=== PATIENT | female | born 1975 | race Caucasian/White ===

== ENCOUNTER 2018-01-19 20:32 | Emergency (ER) | payer MEDICAID ==
[2018-01-20 03:49] LABS: URINE BLOOD (Dip) POC Trace-lysed (NEGATIVE); URINE GLUCOSE (Dip) POC Negative (NEGATIVE); URINE KETONES (Dip) POC Trace (NEGATIVE); URINE LEUKOCYTE EST (Dip) POC 3+ (NEGATIVE); URINE NITRITE (Dip) POC Positive (NEGATIVE); URINE TOTAL PROTEIN POC Negative (NEGATIVE)
[2018-01-20 03:54] LABS: ADD MAN DIFF? NO
[2018-01-20 03:56] LABS: WHITE BLOOD COUNT 10.2 10^3/ul (4.8-10.8)
[2018-01-20 03:56] LABS: BASOPHIL # 0.1 10^3/ul (0.0-0.1); BASOPHILS % 0.5 % (0.0-2.0); EOSINOPHILS # 0.1 10^3/ul (0.0-0.5); HEMATOCRIT 32.6 % (37.0-47.0); HEMOGLOBIN 10.9 g/dl (12.0-16.0); LYMPHOCYTES # 2.5 10^3/ul (0.8-2.9); LYMPHOCYTES % 24.9 % (15.0-51.0); MEAN CORPUSCULAR HGB CONC 33.4 g/dl (32.0-37.0); MEAN CORPUSCULAR VOLUME 80.9 fl (82.0-101.0); MEAN PLATELET VOLUME 10.3 fl (7.4-10.4); MONOCYTE # 0.7 10^3/ul (0.3-0.9); MONOCYTES % 7.1 % (0.0-11.0); NEUTROPHIL # 6.7 10^3/ul (1.6-7.5); PLATELET COUNT 312 10^3/UL (140-415); RED BLOOD COUNT 4.03 10^6/ul (4.20-5.40); RED CELL DISTRIBUTION WIDTH 14.9 % (11.5-14.5)
[2018-01-20] MEDS: SOD CHLORIDE 0.9% 500 ML IV (03:58)
[2018-01-20 04:14] LABS: ALANINE AMINOTRANSFERASE 30 IU/L (13-69); ALBUMIN 3.7 g/dl (3.3-4.9); ALBUMIN/GLOBULIN RATIO 1.02; ALKALINE PHOSPHATASE 67 IU/L (42-121); ANION GAP 16 (8-16); ASPARTATE AMINO TRANSFERASE 21 IU/L (15-46); BILIRUBIN,INDIRECT 0.3 mg/dl (0-1.1); BILIRUBIN,TOTAL 0.3 mg/dl (0.2-1.3); BLOOD UREA NITROGEN 9 mg/dl (7-20); CALCIUM 8.6 mg/dl (8.4-10.2); CARBON DIOXIDE 25 mmol/L (21-31); CHLORIDE 105 mmol/L (97-110); CREATININE 0.61 mg/dl (0.44-1.00); GLUCOSE 88 mg/dl (70-220); POTASSIUM 3.5 mmol/L (3.5-5.1); SODIUM 142 mmol/L (135-144); TOTAL PROTEIN 7.3 g/dl (6.1-8.1)
[2018-01-20 04:26] LABS: B-TYPE NATRIURETIC PEPTIDE 38 PG/ML (0-125)
[2018-01-20 04:43] LABS: TROPONIN-I < 0.012 ng/ml (0.00-0.12)
== END 2018-01-20 05:54 | disposition home or self-care (01) ==
LOC: E/R 20:32
DX: O99.342 Other mental disorders complicating pregnancy, second trimester (principal); O23.42 Unspecified infection of urinary tract in pregnancy, second trimester; F41.9 Anxiety disorder, unspecified; R06.02 Shortness of breath; Z3A.17 17 weeks gestation of pregnancy
CPT/HCPCS: 36415; 80053; 81003; 83880; 84484; 85025; 93005; 99284-25

== ENCOUNTER 2018-05-27 05:46 | Inpatient (IN) | payer OTHER ==
[2018-05-27] MEDS: LACTATED RINGER'S 1,000 ML IV ×3 (06:05→07:45)
[2018-05-27 06:28] LABS: ADD MAN DIFF? NO
[2018-05-27 06:30] LABS: BASOPHILS % 0.4 % (0.0-2.0); EOSINOPHILS # 0.1 10^3/ul (0.0-0.5); EOSINOPHILS % 1.1 % (0.0-7.0); HEMATOCRIT 32.8 % (37.0-47.0); HEMOGLOBIN 10.8 g/dl (12.0-16.0); LYMPHOCYTES # 2.3 10^3/ul (0.8-2.9); LYMPHOCYTES % 23.3 % (15.0-51.0); MEAN CORPUSCULAR HGB CONC 32.9 g/dl (32.0-37.0); MEAN PLATELET VOLUME 11.3 fl (7.4-10.4); MONOCYTE # 0.7 10^3/ul (0.3-0.9); MONOCYTES % 7.6 % (0.0-11.0); NEUTROPHIL # 6.4 10^3/ul (1.6-7.5); NEUTROPHILS % 66.7 % (39.0-77.0); PLATELET COUNT 293 10^3/UL (140-415); RED CELL DISTRIBUTION WIDTH 15.8 % (11.5-14.5)
[2018-05-27 06:30] LABS: WHITE BLOOD COUNT 9.7 10^3/ul (4.8-10.8)
[2018-05-27] MEDS ORDERED: MISOPROSTOL 200 MCG TAB PR ×2 (06:30→15:30)
[2018-05-27] MEDS ORDERED: METHYLERGONOVINE 0.2 MG INJ IM ×2 (06:30→15:30)
[2018-05-27] MEDS ORDERED: OXYTOCIN 30 UNITS/LR 500 ML IV ×3 (06:30→15:30)
[2018-05-27] MEDS ORDERED: CARBOPROST 250 MCG INJ IM ×2 (06:30→15:30)
[2018-05-27 06:40] LABS: PROTIME 12.2 Sec (11.9-14.9)
[2018-05-27 06:41] LABS: PARTIAL THROMBOPLASTIN TIME 27.7 Sec (25.0-35.0)
[2018-05-27] MEDS ORDERED: OXYTOCIN 10 UNIT INJ ×2 (07:43→08:39)
[2018-05-27] MEDS ORDERED: morphine SULFATE/PF (10 MG/10 ML) INJ (07:43)
[2018-05-27] MEDS ORDERED: METOCLOPRAMIDE 10 MG INJ (07:43)
[2018-05-27] MEDS ORDERED: ONDANSETRON 4 MG INJ (07:43)
[2018-05-27] MEDS ORDERED: EPHEDrine SULFATE 50 MG/5 ML SYG (07:43)
[2018-05-27] MEDS ORDERED: BUPIVACAINE 0.75%/DEXT (SPINAL) 2 ML INJ (07:47)
[2018-05-27] MEDS ORDERED: ATROPINE 1 MG/10 ML SYRINGE (08:21)
[2018-05-27] MEDS: CEFAZOLIN 2 GM/50 ML (PMX) 50 ML IV (08:45)
[2018-05-27] MEDS ORDERED: KETOROLAC 30 MG INJ (09:48)
[2018-05-27] MEDS ORDERED: ONDANSETRON 4 MG INJ IV (10:00)
[2018-05-27] MEDS ORDERED: EPHEDrine SULFATE 50 MG/5 ML SYG IV (10:00)
[2018-05-27] MEDS ORDERED: NALOXONE (0.4 MG/ML) INJ IV (10:00)
[2018-05-27] MEDS: morphine SULFATE/PF (10 MG/10 ML) INJ SPINAL (10:03)
[2018-05-27] MEDS: KETOROLAC 30 MG INJ IV ×2 (10:05→17:56)
[2018-05-27] MEDS: OXYTOCIN 30 UNITS/LR 500 ML IV ×4 (10:27→23:14)
[2018-05-27] MEDS: morphine 2 MG INJ IV ×2 (10:29→19:04)
[2018-05-27] MEDS: DIPHENHYDRAMINE 50 MG INJ IV (12:03)
[2018-05-27 15:00] LABS: RAPID PLASMA REAGIN NONREACTIVE (NR)
[2018-05-27] MEDS ORDERED: HYDROCODONE/APAP (5/325) TAB PO (15:30)
[2018-05-27] MEDS: SENNA/DOCUSATE NA (8.6MG/50MG) TAB PO ×2 (15:43→21:54)
[2018-05-27] MEDS: CEFAZOLIN 1 GM/50 ML (PMX) 50 ML IVPB (15:43)
[2018-05-27] MEDS: LANOLIN 7 GM TUBE TOP (18:53)
[2018-05-28] MEDS: morphine 2 MG INJ IV ×3 (01:58→09:17)
[2018-05-28] MEDS: OXYTOCIN 30 UNITS/LR 500 ML IV ×2 (03:11→07:11)
[2018-05-28] MEDS: SENNA/DOCUSATE NA (8.6MG/50MG) TAB PO ×2 (09:00→21:00)
[2018-05-28] MEDS: OXYCODONE/ACETAMINOPHEN (5/325) TAB PO ×4 (10:19→21:38)
[2018-05-28 11:49] LABS: ADD MAN DIFF? NO
[2018-05-28 11:55] LABS: BASOPHILS % 0.2 % (0.0-2.0); EOSINOPHILS # 0.1 10^3/ul (0.0-0.5); EOSINOPHILS % 1.1 % (0.0-7.0); HEMATOCRIT 31.5 % (37.0-47.0); HEMOGLOBIN 10.2 g/dl (12.0-16.0); LYMPHOCYTES # 1.8 10^3/ul (0.8-2.9); LYMPHOCYTES % 14.5 % (15.0-51.0); MEAN CORPUSCULAR HEMOGLOBIN 26.9 pg (29.0-33.0); MEAN CORPUSCULAR HGB CONC 32.4 g/dl (32.0-37.0); MEAN CORPUSCULAR VOLUME 83.1 fl (82.0-101.0); MEAN PLATELET VOLUME 10.8 fl (7.4-10.4); MONOCYTE # 0.7 10^3/ul (0.3-0.9); MONOCYTES % 5.5 % (0.0-11.0); NEUTROPHIL # 9.6 10^3/ul (1.6-7.5); NEUTROPHILS % 78.1 % (39.0-77.0); PLATELET COUNT 298 10^3/UL (140-415); RED BLOOD COUNT 3.79 10^6/ul (4.20-5.40); RED CELL DISTRIBUTION WIDTH 15.9 % (11.5-14.5)
[2018-05-28 11:55] LABS: WHITE BLOOD COUNT 12.4 10^3/ul (4.8-10.8)
[2018-05-28] MEDS: IBUPROFEN 600 MG TAB PO (17:56)
[2018-05-29] MEDS: IBUPROFEN 600 MG TAB PO ×4 (00:37→18:37)
[2018-05-29] MEDS: OXYCODONE/ACETAMINOPHEN (5/325) TAB PO ×3 (03:32→13:49)
[2018-05-29] MEDS: LANOLIN 7 GM TUBE TOP (05:58)
[2018-05-29] MEDS: SENNA/DOCUSATE NA (8.6MG/50MG) TAB PO ×2 (08:26→21:27)
[2018-05-29] MEDS ORDERED: ACCU-CHEK XX (10:05)
[2018-05-29] MEDS: NA PHOSPHATE/BIPHOS 133 ML ENEMA PR (18:38)
[2018-05-30] MEDS: IBUPROFEN 600 MG TAB PO ×3 (00:06→11:37)
[2018-05-30] MEDS: OXYCODONE/ACETAMINOPHEN (5/325) TAB PO (02:24)
[2018-05-30] MEDS ORDERED: ACCU-CHEK XX (06:00)
[2018-05-30] MEDS: SENNA/DOCUSATE NA (8.6MG/50MG) TAB PO (08:40)
[2018-05-30] MEDS: HYDROCODONE/APAP (5/325) TAB PO (08:42)
[2018-05-30] MEDS: DIPHTH/TET/ACEL PERTUSS (ADULT) 0.5 ML VIAL IM* (14:27)
[2018-05-30] MEDS: NA PHOSPHATE/BIPHOS 133 ML ENEMA PR (14:27)
== END 2018-05-30 18:36 | disposition home or self-care (01) | DRG 766 ==
LOC: L-D 05:46 → PP1 17:26
PROVIDERS: Obstetrics & Gynecology
PROC: 10D00Z1 Extraction of Products of Conception, Low, Open Approach (ICD-10-PCS; principal; 2018-05-27 07:30)
DX: O82 Encounter for cesarean delivery without indication (principal); Z3A.37 37 weeks gestation of pregnancy; Z37.0 Single live birth; Z23 Encounter for immunization
CPT/HCPCS: 85025; 85610; 85730; 86592; 86850; 86900; 86901; 86920; 90715; 99464